=== PATIENT | female | born 1970 | race Caucasian/White ===

== ENCOUNTER 2016-04-09 09:34 | Day surgery (SDC) | payer OTHER ==
[2016-04-09] VITALS (8 sets, daily range): BP systolic 125–145; BP diastolic 62–94
[~2016-04-09] VITALS: Ht 167.6 cm; Wt 108.8 kg
[2016-04-09] MEDS ORDERED: LR 1,000 ML IV SCH ×2 (10:00→13:45)
[2016-04-09 10:11] LABS: MEAN CORPUSCULAR HEMOGLOBIN 25.5 pg (27.0-33.0); MEAN CORPUSCULAR HGB CONC 32.8 g/dl (32.0-36.5); MEAN CORPUSCULAR VOLUME 77.9 fl (80.0-96.0); RED CELL DISTRIBUTION WIDTH 13.6 % (11.5-14.5)
[2016-04-09] MEDS ORDERED: BUPIVACAINE HCL 0.25% 30 ML VIAL As Ordered ONE (10:20)
[2016-04-09 10:25] LABS: CONTROL LINE HCG INT CTR LINE PRESENT
[2016-04-09] MEDS ORDERED: dexameTHASONE 4 MG/ML 1ML VIAL (J1100) As Ordered ONE (11:10)
[2016-04-09] MEDS ORDERED: LIDOCAINE 2% INJ 100 MG/5 ML SDV (FOR ANES.) As Ordered ONE (11:10)
[2016-04-09] MEDS ORDERED: ROCURONIUM BROMIDE 50 MG/5 ML VIAL As Ordered ONE (11:10)
[2016-04-09] MEDS ORDERED: fentaNYL 250 MCG/5 ML INJECTION (J3010) As Ordered ONE (11:10)
[2016-04-09] MEDS ORDERED: MIDAZOLAM INJ 2 MG/2 ML VIAL (J2250) As Ordered ONE (11:10)
[2016-04-09] MEDS ORDERED: PROPOFOL 200 MG/20 ML VIAL As Ordered ONE (11:10)
[2016-04-09] MEDS ORDERED: BUPIVACAINE HCL 0.25% 30 ML VIAL XX ONE (11:16)
[2016-04-09] MEDS ORDERED: HYDROmorphone HCL 2 MG/ML 1ML VIAL (J1170) As Ordered ONE (11:19)
[2016-04-09] MEDS ORDERED: ePHEDrine SULFATE 25 MG/5 ML(5MG/ML) SYRINGE As Ordered ONE (11:36)
[2016-04-09] MEDS ORDERED: DESFLURANE 240 ML INHALANT As Ordered ONE (11:44)
[2016-04-09] MEDS ORDERED: KETOROLAC 60 MG/2 ML VIAL (J1885) As Ordered ONE (12:19)
[2016-04-09] MEDS ORDERED: ONDANSETRON 4MG/2ML VIAL (J2405) As Ordered ONE (12:19)
[2016-04-09] MEDS ORDERED: NEOSTIGMINE 1MG/ML 5 ML SYRINGE (J2710) As Ordered ONE (12:19)
[2016-04-09] MEDS ORDERED: GLYCOPYRROLATE INJ 0.2 MG/ML 2 ML VIAL As Ordered ONE ×2 (12:19→12:38)
--- NOTE | 2016-04-09 13:31 | RO ---
DATE OF PROCEDURE: 04/09/2016 PREOPERATIVE DIAGNOSIS: Abnormal uterine bleeding. Fibroid uterus. POSTOPERATIVE DIAGNOSIS: Abnormal uterine bleeding. Fibroid uterus. PROCEDURE: Robotic assisted laparoscopic hysteroscopy. Bilateral salpingectomy with cystoscopy. SURGEON: Talia Rangel MD CERAMICS TEST ENGINEER: Nayeli Givens NP ANESTHESIA: General endotracheal anesthesia. ESTIMATED BLOOD LOSS: 50 mL. INTRAVENOUS FLUIDS: 1200 mL lactated Ringer solution. URINE OUTPUT: 300 mL. PREOPERATIVE ANTIBIOTICS: 2 grams of Ancef. SPECIMENS: Cervix. Uterus. Bilateral fallopian tubes. OPERATIVE FINDINGS: Fibroid uterus. Normal appearing adnexa. CYSTOSCOPIC FINDINGS: Normal bladder mucosa with bilateral jets observed. No foreign bodies were observed. DESCRIPTION OF OPERATION: After informed consent was obtained and written content was reviewed, the patient was brought to the operating room where general endotracheal anesthesia was obtained. She was then placed in lithotomy position and was prepped and draped in a normal sterile fashion. A time out in the operating room was then performed identifying the patient, the procedure to be performed, as well as drug allergies. A speculum was then placed in the vagina revealing the cervix. The anterior and posterior aspects of the cervix were stitched with #0 Vicryl. A large VCare uterine manipulator was then advanced through the cervical os for means of manipulation. The cervical sleeve was then advanced over the cervix along with the vaginal sleeve that was placed into the vagina after 10 mL was insufflated within the VCare. A Pittman catheter was then placed and set to gravity. Gloves were changed. Attention was then turned to the patient's abdomen. A Veress needle was then placed through the umbilicus and a pneumoperitoneum was then obtained with CO2 gas. The supraumbilical area was infused with 0.25% Marcaine. This area was infused with Marcaine. An incision was made in this area. An 11 mm trocar and sleeve was advanced through this incision under direct visualization. Two additional port sites were placed, left and to the right of the umbilicus. Each one of these ports were infused with the 0.25% Marcaine. Incisions were made in each one of these incisions. 8 mm trocars and sleeves were advanced through each one of these incisions under direct visualization. A fourth trocar site was also placed in the left side of the patient's abdomen. This area was also infused with 0.25% Marcaine. An incision was made in this area and an 8 mm trocar and sleeve was advanced through this incision under direct visualization. The abdomen was then surveyed with the above findings. Next, the da Félix device was then docked utilizing a monopolar cautery with bipolar cautery. The equipment was then docked and utilizing this equipment the right fallopian tube was placed on traction. The mesosalpinx was then dissected out and the fallopian tube was transected at the uterus and the specimen was brought out through the port site. In similar fashion, the left fallopian tube was placed on traction, the mesosalpinx was dissected along the fallopian tube and the fallopian tube was then transected at the uterus. The specimen was also brought out through the port site. Next, the utero-ovarian ligaments bilaterally were cauterized and ligated with good hemostasis noted. The round ligaments on both sides were cauterized and ligated. The bladder flap was then created. The remainder of the broad ligaments and cardinal ligaments were then cauterized and ligated. Good hemostasis was noted. The uterine vessels were then skeletonized, were identified, were cauterized and ligated with good hemostasis noted. Next, anterior and posterior colpotomies were then made. The uterus was then delivered through the vagina. The vaginal cuff was then closed using the V-loc system in a running fashion. The surgical sites were inspected and noted to be hemostatic. The surgical field was irrigated and then suctioned. Carlos was applied over the surgical field. Next, cystoscopy was performed. The Pittman catheter was then removed. The 70 degree cystoscope was then advanced through the urethra and the bladder was surveyed with the above noted findings. The bladder was then drained. Gloves were changed and attention was turned to the patient's abdomen. The da Félix was undocked. The ports were removed from the patient's abdomen. All four port sites were closed with #4-0 and dressed with Dermabond. The patient was then awakened from general anesthesia and was taken to recovery in stable condition. Nayeli Givens, my human resource assistant's, role was essential to the operation. She assisted with identification of vital structures, manipulation of structures, as well as, port placement and skin closure. Counts were correct.
[2016-04-09] MEDS ORDERED: zolPIDEM TARTRATE 10MG TAB PO PRN (13:45)
[2016-04-09] MEDS ORDERED: MORPHINE 4 MG/ML 1ML SYRINGE IV PRN ×2 (13:45→16:00)
[2016-04-09] MEDS ORDERED: METOCLOPRAMIDE INJ 10MG/2ML VIAL (J2765) IV PRN (13:45)
[2016-04-09] MEDS ORDERED: MORPHINE 2 MG/ML 1ML SYRINGE IV PRN (13:45)
[2016-04-09] MEDS ORDERED: ONDANSETRON 4MG/2ML VIAL (J2405) IV PRN (13:45)
[2016-04-09] MEDS ORDERED: fentaNYL 100 MCG/2 ML INJECTION (J3010) IV PRN (13:45)
[2016-04-09] MEDS ORDERED: PROMETHAZINE INJ 25 MG/ML VIAL (J2550) IV PRN (13:45)
[2016-04-09] MEDS ORDERED: PERCOCET 5MG/325MG TAB PO PRN ×2 (13:45)
[2016-04-09] MEDS: LR 1,000 ML IV SCH ×2 (14:30→21:45)
[2016-04-09] MEDS: KETOROLAC 30 MG/ML VIAL (J1885) IV SCH (18:42)
[2016-04-09] MEDS: PERCOCET 5MG/325MG TAB PO PRN (22:33)
[2016-04-10] MEDS: KETOROLAC 30 MG/ML VIAL (J1885) IV SCH ×2 (01:00→05:16)
[2016-04-10 02:00] VITALS: BP 135/68
[2016-04-10 06:00] VITALS: BP 127/63
[2016-04-10 06:52] LABS: MEAN CORPUSCULAR HEMOGLOBIN 24.8 pg (27.0-33.0); MEAN CORPUSCULAR HGB CONC 31.8 g/dl (32.0-36.5); MEAN CORPUSCULAR VOLUME 78.2 fl (80.0-96.0); RED CELL DISTRIBUTION WIDTH 15.1 % (11.5-14.5); WHITE BLOOD COUNT 19.5 K/mm3 (4.0-10.0)
[2016-04-10] MEDS ORDERED: OXYC1TAB23 PO (07:55)
[2016-04-10] MEDS: PERCOCET 5MG/325MG TAB PO PRN (09:51)
== END 2016-04-10 10:05 | disposition home or self-care (01) ==
LOC: M SDC 09:34 → M MSPAV 14:20 → M SDC 04-10 10:05
PROVIDERS: ATTEND Obstetrics & Gynecology
DX: N92.0 Excessive and frequent menstruation with regular cycle (principal); D25.9 Leiomyoma of uterus, unspecified
CPT/HCPCS: 36415; 58571; 84703; 85027; 86850; 86900; 86901; 88309; 96374; 96375; 96376; A6024; J0690; J1100; J1170; J1885; J2250; J2405; J2710; J3010

== ENCOUNTER → 2016-08-04 | Outpatient (REF) | payer OTHER ==
[~2016-08-04] MED LIST: OXYC1TAB23 PO
== END ==
LOC: M LAB REF 17:08
PROVIDERS: ATTEND Physician Assistant
DX: M79.1 Myalgia (principal); R53.83 Other fatigue